=== PATIENT | male | born 1965 | race Caucasian/White ===

== ENCOUNTER → 2017-05-02 | Outpatient (CLI) | payer OTHER | LOC: FIMAGING 13:52 | PROVIDERS: ATTEND Orthopaedic Surgery | DX: Z01.818 Encounter for other preprocedural examination (principal); M17.11 Unilateral primary osteoarthritis, right knee ==

== ENCOUNTER 2017-06-17 07:40 | Inpatient (IN) | payer OTHER ==
--- NOTE | 2017-06-17 06:39 | PDHPUP ---
History & Physical Update H&P update statement: This history and physical update is based on an assessment of the patient which was completed after admission or registration (within 24 hours), but prior to the surgery/procedure.
--- NOTE | 2017-06-17 06:40 | PDIAF ---
- Diagnosis Diagnosis: right partial knee replacement - Medication Management Discharge Medications: Medications to Continue on Transfer NK [No Known Home Meds] 05/07/17 [Last Taken Unknown] Discharge Medications: Refer to the Discharge Home Medication list for PRN reason. - Orders Diet Recommendation: no restrictions on diet Diet Texture: Regular Texture Diet Activity/Weight Bearing Restrictions: wbat. rom as tolerated. daily dressing changes. no soaking or immersion. f/u at two weeks [facility]. seek attn for increasing pain, cp, sob - Follow Up Care Current Providers and Referrals: NONE *PRIMARY CARE P,. [Primary Care Provider] -
[~2017-06-17 07:40] MED LIST: ROPIVACAINE 0.2% 80 MG, EPINEPHrine 0.2 MG, KETOROLAC TROMETHAMINE 30 MG, morphINE 10 M... IU ONE; TRANEXAMIC ACID 950 MG in NS 100 ML IV ONE
[2017-06-17] MEDS ORDERED: FAMOTIDINE 20 MG TAB PO ONE (07:50)
[2017-06-17] MEDS ORDERED: ACETAMINOPHEN 325 MG TAB PO ONE (07:50)
[2017-06-17] MEDS ORDERED: ceFAZolin 2 GM/DEXTROSE 100 ML IV ONE (07:50)
[2017-06-17] MEDS ORDERED: ceFAZolin 1 GM/5 ML SYR ONE (07:57)
[2017-06-17] MEDS ORDERED: LR 1,000 ML IV ONE (07:58)
[2017-06-17] MEDS ORDERED: LIDOCAINE 1% 2 ML INJ ONE (08:40)
[2017-06-17] MEDS ORDERED: fentaNYL 100 MCG/2 ML INJ ONE (09:20)
[2017-06-17] MEDS ORDERED: PROPOFOL/EMULSION 500 MG/50 ML BOTTLE IV ONE (09:20)
[2017-06-17] MEDS ORDERED: MIDAZOLAM 2 MG/2 ML VIAL ONE (09:20)
[2017-06-17] MEDS ORDERED: METOCLOPRAMIDE 10 MG/2 ML VIAL ONE (09:21)
[2017-06-17] MEDS ORDERED: LIDOCAINE 2% 100 MG/5 ML SYR ONE (09:21)
[2017-06-17] MEDS ORDERED: KETOROLAC 30 MG/1 ML SDV ONE (09:21)
[2017-06-17] MEDS ORDERED: BUPIVACAINE/DEXTROSE 7.5MG/ML 2 ML SPINAL AMP SP ONE (09:21)
[2017-06-17] MEDS ORDERED: DEXAMETHASONE 4 MG/ML VIAL ONE ×2 (09:21)
--- NOTE | 2017-06-17 09:28 | PDANEPAE ---
ANE Past Medical History - Cardiovascular History Hx Hypertension: No Hx Arrhythmias: No Hx Chest Pain: No Hx Coronary Artery / Peripheral Vascular Disease: No Hx CHF / Valvular Disease: No Hx Palpitations: No - Pulmonary History Hx COPD: No Hx Asthma/Reactive Airway Disease: No Hx Recent Upper Respiratory Infection: No Hx Oxygen in Use at Home: No Hx Sleep Apnea: No Sleep Apnea Screening Result - Last Documented: Negative - Neurologic History Hx Cerebrovascular Accident: No Hx Seizures: No Hx Dementia: No - Endocrine History Hx Diabetes: No - Renal History Hx Renal Disorders: No - Liver History Hx Hepatic Disorders: No - Neurological & Psychiatric Hx Hx Neurological and Psychiatric Disorders: No - Cancer History Hx Cancer: No - Congenital Disorder History Hx Congenital Disorders: No - GI History Hx Gastrointestinal Disorders: Yes Gastrointestinal History Comment: diverticulitis- managed with diet - Other Health History Other Health History: wears reading glasses - Chronic Pain History Chronic Pain: Yes (right knee) - Surgical History Prior Surgeries: hernia repair as child. right achilles repair. right knee scope ANE Review of Systems Review of Systems: - Exercise capacity METS (RN): 5 METS ANE Patient History - Allergies Allergies/Adverse Reactions: No Known Allergies Allergy (Verified 05/14/17 14:48) - Home Medications Home Medications: NK [No Known Home Meds] 05/07/17 [Last Taken Unknown] - NPO status NPO Since - Liquids (Date): 06/16/17 NPO Since - Liquids (Time): 21:00 NPO Since - Solids (Date): 06/16/17 NPO Since - Solids (Time): 20:00 - Smoking Hx Smoking Status: Never smoked - Family Anes Hx Family Hx Anesthesia Complications: none ANE Labs/Vital Signs - Vital Signs Blood Pressure: 120/81 Heart Rate: 62 Respiratory Rate: 16 O2 Sat (%): 96 Height: 185.42 cm Weight: 95.254 kg ANE Physical Exam - Airway Neck exam: FROM Mallampati Score: Class 2 Mouth exam: normal dental/mouth exam - Pulmonary Pulmonary: no respiratory distress - Cardiovascular Cardiovascular: regular rate and rhythym - ASA Status ASA Status: I ANE Anesthesia Plan Anesthesia Plan: spinal Regional Anesthesia: adductor canal FNB
[2017-06-17] MEDS ORDERED: CALCIUM CHLORIDE 1 GM/10 ML INJ ONE (10:46)
[2017-06-17] MEDS ORDERED: THROMBIN (BOVINE) 5,000 UNIT VIAL TP ONE (10:46)
[2017-06-17] MEDS ORDERED: PROPOFOL 200 MG/20 ML VIAL ONE ×2 (11:03→11:25)
[2017-06-17] MEDS ORDERED: BUPIVACAINE/EPI 0.5% 30 ML SDV ONE (11:40)
[2017-06-17] MEDS ORDERED: MAGNESIUM HYDROXIDE 30 ML UDCUP PO PRN (11:46)
[2017-06-17] MEDS ORDERED: diphenhydrAMINE 25 MG CAP PO PRN (11:46)
[2017-06-17] MEDS ORDERED: BISACODYL 10 MG SUPP PR PRN (11:46)
[2017-06-17] MEDS ORDERED: METOCLOPRAMIDE 10 MG/2 ML VIAL IVP PRN (11:46)
[2017-06-17] MEDS ORDERED: POLYETHYLENE GLYCOL 3350 17 GM PKT PO PRN (11:46)
[2017-06-17] MEDS ORDERED: ONDANSETRON 4 MG/2 ML VIAL IVP PRN ×2 (11:46→12:15)
[2017-06-17] MEDS ORDERED: oxyCODONE IR 5 MG TAB PO PRN (11:46)
[2017-06-17] MEDS ORDERED: PROMETHAZINE HCL 25 MG SUPPR PR PRN (11:46)
[2017-06-17] MEDS ORDERED: CYCLOBENZAPRINE 10 MG TAB PO PRN (11:46)
[2017-06-17] MEDS ORDERED: TEMAZEPAM 15 MG CAP PO PRN (11:46)
[2017-06-17] MEDS ORDERED: PROMETHAZINE HCL 25 MG/ML INJ IVP PRN (11:46)
[2017-06-17] MEDS ORDERED: LACTULOSE 20 GM/30 ML UDCUP PO PRN (11:46)
[2017-06-17] MEDS ORDERED: DIPHENOXYLATE/ATROPINE LOMOTIL 1 TAB PO PRN (11:46)
[2017-06-17] MEDS ORDERED: ONDANSETRON DISINTEGRATING 4 MG TAB PO PRN (11:46)
[2017-06-17] MEDS ORDERED: ACETAMINOPHEN 325 MG TAB PO SCH (12:00)
[2017-06-17] MEDS ORDERED: LR 1,000 ML IV SCH (12:00)
[2017-06-17] MEDS ORDERED: fentaNYL 100 MCG/2 ML INJ IVP PRN (12:15)
[2017-06-17] MEDS ORDERED: ALBUTEROL 3 ML DEYVIAL IH PRN (12:15)
[2017-06-17] MEDS ORDERED: HYDROCODONE/APAP 5/325 TAB PO PRN (12:15)
[2017-06-17] MEDS ORDERED: HYDROmorphONE/DILAUDID 1 MG/ML INJ IVP PRN (12:15)
[2017-06-17] MEDS ORDERED: OXYCODONE/APAP 5/325 TAB PO PRN (12:15)
[2017-06-17] MEDS ORDERED: ACETAMINOPHEN 500 MG TAB PO PRN (12:15)
[2017-06-17] MEDS ORDERED: MEPERIDINE 25 MG/ML SYR IVP PRN (12:15)
[2017-06-17] MEDS ORDERED: NALOXONE HCL 0.4 MG/ML INJ IVP PRN (12:15)
--- NOTE | 2017-06-17 12:15 | POSTANESTH ---
Post Anesthetic Evaluation Cardiovascular Status: Normal, Stable Respiratory Status: Normal, Stable Level of Consciousness/Mental Status: Can Participate in Eval Pain Control: Adequate, Prn Tx Ordered Nausea/Vomiting Control: Adequate, Prn Tx Ordered Complications Possibly Related to Anesthesia: None Noted
[2017-06-17 13:25] VITALS: RESP 16
[2017-06-17] MEDS: TRANEXAMIC ACID 650 MG TAB PO SCH ×2 (14:12→14:26)
--- NOTE | 2017-06-17 15:36 | PDIAF ---
- Diagnosis Diagnosis: right partial knee replacement Code Status: Full Code - Medication Management Discharge Medications: Medications to Continue on Transfer Aspirin [Aspirin 325 mg (*)] 325 mg PO DAILY tab 06/17/17 [Last Taken Unknown] oxyCODONE IR [Oxycodone Ir (*)] 5 - 10 mg PO Q3HRS PRN #70 tab 06/17/17 [Last Taken Unknown] Discharge Medications: Refer to the Discharge Home Medication list for PRN reason. - Orders Services needed: Physical Therapy Diet Recommendation: no restrictions on diet Diet Texture: Regular Texture Diet Activity/Weight Bearing Restrictions: wbat. rom as tolerated. daily dressing changes. no soaking or immersion. f/u at two weeks [facility]. seek attn for increasing pain, cp, sob - Follow Up Care Current Providers and Referrals: NONE *PRIMARY CARE P,. [Primary Care Provider] -
[2017-06-17 15:56] VITALS: BP 120/80; PULSE 73; TEMP 98.1; O2SAT 93
[2017-06-17] MEDS ORDERED: ceFAZolin 2 GM/DEXTROSE 100 ML IV SCH (18:00)
[2017-06-17] MEDS ORDERED: SENNOSIDES/DOCUSATE SODIUM TAB PO SCH (21:00)
[2017-06-17] MEDS ORDERED: ASPIRIN 325 MG TAB PO SCH (21:00)
[2017-06-17] MEDS ORDERED: FAMOTIDINE 20 MG TAB PO SCH (21:00)
--- NOTE | 2017-06-18 10:53 | ASDISCHSUM ---
Discharge Information Plan Status:Home with Home Health Medically Cleared to Leave: Discharge Date:06/17/2017 05:36 PM D/C Disposition:Home Health Service ADT D/C Disposition:Home, Routine, Self-Care Projected Discharge Date:06/17/2017 11:00 AM Transportation at D/C: Discharge Delay Reason: Follow-Up Date:06/17/2017 11:00 AM Discharge Slot: Final Diagnosis: Placement Information Referral Type:*Home Health Care Services Referral ID:[id number] Provider Name: Address 1: Phone Number: Address 2: Fax Number: City: Selection Factors: State: Patient Contact Information Contact Name:KEYLA Relationship:Other Address: Work Phone: City: [facility] Phone: [facility] Code: Email: Financial Information Financial Class:HMO and PPO Plans Primary Plan Desc:[employer] Primary Plan Number:[id number] Secondary Plan Desc: Secondary Plan Number: Assessment Information [facility] CM Progress Note CM Note CM Note Notes: PT/OT have not had opportunity to eval by the time this CM leaves, pt interested in HHC. [facility] alerted via VM. Date Signed: 06/18/2017 10:52 AM Electronically Signed By:ANDRE Timmons Intervention Information
--- NOTE | 2017-06-19 09:23 | GOP ---
[f rep st] OPERATIVE REPORT DATE OF OPERATION: 06/17/2017 SURGEON: Jose Núñez MD [employer] MANAGER: Saad Martinez MD, who was a medical necessity for the entirety of the case. PREOPERATIVE DIAGNOSIS: Right knee medial compartment arthritis. POSTOPERATIVE DIAGNOSIS: Right knee medial compartment arthritis. PROCEDURE PERFORMED: Right knee partial knee replacement, medial MAKOplasty. FINDINGS: SPECIMENS: To Pathology none. INDICATIONS: The patient is a 51-year-old gentleman who has end-stage arthritis to the medial compar tment of his right knee. He has minimal arthritis to the patellofemoral and lateral joints. Given h is young age and unicompartmental arthritis, I have recommended partial knee replacement. He underst ood the risks, benefits, alternatives, and wished to proceed. Written consent was signed and placed in patient's chart. DESCRIPTION OF PROCEDURE: The patient was identified in the preanesthesia area. The right knee lakisha rly demarcated as the operative site with indelible marker. He was given 2 g of Ancef intravenously en route to the operative suite. In the OR, general endotracheal anesthesia was administered. Atten tion was turned to the right knee which was sterilely prepped and draped in the usual fashion. Appro priate time-out procedure was carried out. The limb was exsanguinated with an Esmarch bandage. Tour niquet inflated to 275 mmHg. A standard anterior midline incision was made. Thick subcutaneous flap s were elevated, followed by medial parapatellar arthrotomy. The patella was then everted. There we re gross bony changes within the medial compartment. The patellofemoral and lateral compartments dem onstrated very mild grade 1 and small areas of grade 2 chondral changes. Decision was made to procee d with a medial compartment MAKOplasty. A separate percutaneous incision was made across the mid fem ur and mid ernst. Two pins were placed in each area, and the femoral and tibial arrays affixed. [facility] kpoints were then placed into the femur and tibia, and the bony landmarks were entered into the [employer] robot as per protocol. The template was adjusted for a size 7 tibia and size 7 femoral compone nts. Appropriate soft tissue balancing was carried out. Using the MAKOplasty robot, the etchings on the femur and tibia were then created with the bur. All loose debris was withdrawn. A trial reduct ion was carried out with a size 8 mm thick spacer, and this allowed anatomic buddhist, neutral ali gnment, and appropriate soft tissue balance through flexion-extension arc. Trial components were wit hdrawn. The bony surfaces were thoroughly cleansed and dried, and in a sequential fashion the tibia and femoral components were cemented over the final 8 mm polyethylene. This was confirmed to be full y seated. Once the cement had fully dried, the medial parapatellar arthrotomy was closed using #1 Et hibond suture. Subcutaneous tissue and other incisions were closed using 2-0 Monocryl and beronica. The margins were instilled with a joint cocktail of ropivacaine, morphine, Toradol, and epinephrine. The knee was instilled with a platelet-rich plasma solution and sterile dressing applied. The patie nt was awakened, extubated, taken to the recovery room in good, stable condition. TOTAL TOURNIQUET TIME: 1 hour. COMPLICATIONS: None. IMPLANTS: The MAKOplasty Restoris medial femoral component size 7, medial tibial component size 7, a nd 7 x 8 mm polyethylene insert. DISPOSITION: To the recovery room, then the floor. He is weightbearing, range of motion as tolerate d. /[id number]/MODL
--- NOTE | 2017-06-19 11:08 | GDS ---
[f rep st] DISCHARGE SUMMARY ADMIT DIAGNOSIS: Right knee medial compartment arthritis. POSTOPERATIVE DIAGNOSIS: Right knee medial compartment arthritis. PROCEDURE: Right knee medial MAKOplasty/partial replacement. HISTORY OF PRESENT ILLNESS: The patient is a 51-year-old gentleman who has end-stage arthritis to hi s right medial knee. He has clinical radiographic features consistent with this. He has failed all attempts at conservative management. I have therefore recommended operative intervention with partia l knee replacement. He understood the risks, benefits, and alternatives, and wished to proceed. [facility] virgilio consent was signed and placed in patient's chart. HOSPITAL COURSE: The patient was admitted to the hospital floor after uncomplicated partial knee rep lacement. He tolerated this procedure well. He progressed rapidly with physical therapy. The after noon of his surgery, he had been cleared by Physical Therapy and desired to go home. He was therefor e set up for discharge. At the time of discharge, he is tolerating an oral diet, his pain is well co ntrolled on oral medicines, he is voiding and stooling without difficulty, his dressing is clean, dry , and intact, and he has no calf swelling or tenderness. DISCHARGE ACTIVITIES: Weightbearing and range of motion as tolerated. Daily dressing changes. No s oaking or immersion. FOLLOWUP: At 2 weeks. Seek attention for increasing redness, swelling, drainage, discharge, or othe r focal complaint. DISCHARGE MEDICATIONS: Oxycodone 5 mg 1-2 every 3 hours p.r.n. pain Copy requested to: Primary Care Physician /[id number]/MODL
== END 2017-06-17 17:36 | disposition home or self-care (01) | DRG 470 ==
LOC: F3N 07:40
PROVIDERS: ADMIT Orthopaedic Surgery; ATTEND Orthopaedic Surgery
PROC: 8E0Y0CZ Robotic Assisted Procedure of Lower Extremity, Open Approach (ICD-10-PCS; principal; 2017-06-17 15:15)
PROC: 0SRC0L9 Replacement of Right Knee Joint with Medial Unicondylar Synthetic Substitute, Cemented, Open Approach (ICD-10-PCS; principal; 2017-06-17 15:15)
DX: M17.11 Unilateral primary osteoarthritis, right knee (principal)
CPT/HCPCS: 97161-GP; C1713; J0171; J0690; J1100; J1885; J2001; J2250; J2704; J2765; J2795; J3010

== ENCOUNTER → 2017-07-24 | Outpatient (CLI) | payer OTHER | LOC: BMCIMAGING 15:10 | PROVIDERS: ATTEND Physician Assistant | DX: Z09 Encounter for follow-up examination after completed treatment for conditions other than malignant neoplasm (principal); Z96.651 Presence of right artificial knee joint ==

== ENCOUNTER → 2017-09-05 | Outpatient (CLI) | payer OTHER | LOC: BMCIMAGING 08:28 | PROVIDERS: ATTEND Physician Assistant | DX: Z96.651 Presence of right artificial knee joint (principal); R93.6 Abnormal findings on diagnostic imaging of limbs ==

== ENCOUNTER → 2018-06-13 | Outpatient (CLI) | payer OTHER | LOC: BMCIMAGING 09:48 | PROVIDERS: ATTEND Physician Assistant | DX: Z47.1 Aftercare following joint replacement surgery (principal); Z96.651 Presence of right artificial knee joint ==